=== PATIENT | female | born 1980 | race Two or more races ===

== ENCOUNTER 2023-09-03 02:50 | Emergency (ER) | payer MEDICAID, OTHER ==
[~2023-09-03] VITALS: Ht 157.5 cm; Wt 95.1 kg
[2023-09-03] MEDS ORDERED: IBUP1TAB5 PO (04:38)
[2023-09-03] MEDS: KETOROLAC TROMETH 30 MG/ML 1ML VIAL IM ONE (04:52)
[2023-09-03 05:27] VITALS: BP 102/63; PULSE 92; RESP 18; TEMP 97.6; O2SAT 97
== END 2023-09-03 05:30 | disposition home or self-care (01) ==
LOC: ER 02:50
DX: B07.0 Plantar wart (principal)
CPT/HCPCS: 96372; 99283; J1885